=== PATIENT | male | born 1950 | race Caucasian/White ===

== ENCOUNTER 2021-11-26 08:07 | Outpatient (REF) | payer OTHER, SELFPAY ==
[2021-11-26 11:40] LABS: Appearance Urine Clear; Color Urine Yellow; Glucose Urine UA Negative (Negative); Leukocyte Esterase Urine Negative (Negative); Nitrite Urine Negative (Negative); PH 6.5 (5.0-9.0); Specific Gravity - Urine <= 1.005 (1.005-1.025); Urine Blood Negative (Negative); Urine Ketones Negative (Negative); Urine Protein Negative (Neg-Trace)
[2021-11-26 11:42] LABS: Basophils Absolute Auto 0.1 X10*3/uL (0.0-0.2); Basophils Percent Auto 1.3 % (0-2); Eosinophils Absolute Auto 0.1 X10*3/uL (0.0-0.4); Eosinophils Percent Auto 3.5 % (0-4); Hematocrit 48.9 % (42.0-52.0); Hemoglobin 16.4 g/dl (14.0-18.0); Imm Gran Abs Auto 0.01 X10*3/uL (0.00-0.03); Imm Gran Pct Auto 0.3 % (0.0-0.4); Lymphocytes Percent Auto 25.8 % (20-40); MANUAL DIFF FLAG NO; Mean Corpuscular HGB Conc 33.5 g/dl (31.0-36.0); Mean Corpuscular Hemoglobin 28.1 pg (27.0-33.0); Mean Corpuscular Volume 83.9 fL (80.0-98.0); Mean Platelet Volume 11.4 fL (9.4-12.4); Monocytes Absolute Auto 0.5 X10*3/uL (0.1-1.2); Neutrophils Absolute Auto 2.3 x10*3/uL (2.0-8.3); Neutrophils Percent Auto 57.1 % (45-73); Platelet Count 163 X10*3/uL (160-400); Red Blood Count 5.83 X10*6/uL (4.60-5.80); Red Cell Distribution Width 12.9 % (11.0-16.0)
[2021-11-26 12:16] LABS: Alanine Aminotransferase 17 U/L (0-40); Albumin Level 4.4 g/dL (3.5-5.0); Alkaline Phosphatase 52 U/L (39-117); Anion Gap 15 (12-20); Aspartate Amino Transferase 19 U/L (5-37); Bilirubin Total 0.8 mg/dL (0.0-1.0); Blood Urea Nitrogen 13 mg/dL (9-16); Carbon Dioxide 27 mmol/L (22-29); Chloride 103 mmol/L (96-108); Cholesterol 127 mg/dL; Estimated Glomerular Filt Rate > 60; Glucose Fasting 104 mg/dL (60-99); HDL Cholesterol 45 mg/dL; LDL Cholesterol Calculated 65 mg/dl; Potassium 3.5 mmol/L (3.3-5.1); Sodium 141 mmol/L (135-145); Total Protein 6.7 g/dL (6.5-8.0); Triglycerides 89 mg/dL
[2021-11-26 12:41] LABS: Prostate Specific Antigen Scr 3.07 ng/mL (<0.05-4.0); TSH reflex Free T4 1.63 uIU/mL (0.32-4.0)
== END 2021-11-26 08:08 | disposition home or self-care (01) ==
LOC: HO.HMGCLDS 08:07
PROVIDERS: PCP Nurse Practitioner Family; Visit Provider Nurse Practitioner Family
DX: I10 Essential (primary) hypertension (principal); Z12.5 Encounter for screening for malignant neoplasm of prostate
CPT/HCPCS: 36415; 80053; 80061; 81003; 84153; 84443; 85025

== ENCOUNTER → 2021-11-27 07:08 | Outpatient (REF) | payer OTHER, SELFPAY ==
--- NOTE | ~2021-11-27 | CT_ITS ---
EXAMINATION: CT ANGIOGRAM CHEST CLINICAL INFORMATION: Aortic aneurysm COMPARISON: None TECHNIQUE: Multiple axial images were obtained through the chest after the administration of 70 mL of Omnipaque 350 intravenous contrast. Additional 2-D coronal and sagittal reformatted images and axial 3-D maximum intensity projection MIP images are generated on the CT workstation. This CT examination was performed using dose optimization techniques as appropriate, variously including the following: *Automated exposure control *Adjustment of mA and/or kV according to patient size (this includes techniques or standardized protocols for targeted exams where dose is matched to indication/reason for exam; i.e. extremities or head) *Use of iterative reconstruction technique DLP: 466 mGy-cm VASCULAR FINDINGS: There is aneurysmal dilatation of the ascending thoracic aorta. At the level of the main pulmonary artery, transverse dimension is 4.7 x 4.6 cm. When measurements are made to a nuclear to a center line, dimensions and is closer to 4.6 cm. Maximal dimension for a patient of 71 years of age would be 4.2 cm (see below). A tricuspid aortic valve is seen. Extensive coronary calcifications are present. A three-vessel branching pattern of the arch is present with widely patent great vessels. The small visualized portion of the abdominal aorta appears normal with a separate origin to the left gastric artery, patent celiac and SMA. Single renal arteries are included on this study which appear normal proximally. Although not carried out for evaluation of the pulmonary arteries and pulmonary veins, no abnormality is seen. No pulmonary emboli are detected. NONVASCULAR FINDINGS: LUNGS: A 3 mm right upper lobe lung nodule is present (5:89). The lungs are otherwise clear with no evidence of inflammation or worrisome nodules. MEDIASTINUM: The mediastinum is normal. PLEURA: There is no pleural effusion. No pleural mass or thickening. AXILLA: No lymphadenopathy. UPPER ABDOMEN: There is a 1.6 cm nodule in the left adrenal gland which even after IV contrast measures 2 Hounsfield units. This is consistent with a benign adenoma. OSSEOUS STRUCTURES: Mild degenerative changes are present in the spine. Mild compression of the superior endplate of T9. No bony destructive lesion. CT/CT angio chest aorta IMPRESSION: Aneurysmal dilatation of the ascending aorta 4.6 cm. Normal aortic diameters (in millimeters) Ascending aorta: 31+0.16 x age. Descending aorta: 21+0.16 x age. Reference: [employer] Cardiovascular J 2005; 40 (3): 175-178 Incidentally noted left adrenal benign adenoma and a 3 mm right upper lobe pulmonary nodule for which no follow-up is most likely indicated. 2017 Fleischner Society Recommendations for Lung Nodule(s): Follow-Up based on size (average of long- and short-axis diameters). Use most suspicious nodule for followup. Single Solid low risk nodule < 6 mm: No routine follow-up imaging is recommended in low risk and high risk patients. These guidelines do not apply to patients younger than 35 years, immunocompromised patients, and patients with cancer. F/u in patients with significant comorbidities as clinically warranted. For lung cancer screening, adhere to Lung-RADS guidelines. Reference: Radiology. 2017 Sep; 284(1):228-243 Fleischner guidelines were followed.
--- NOTE | 2021-11-27 07:11 | CA_ITS ---
Transthoracic Echocardiogram Patient (Last, First, Middle): Piyush Linn, Gender: Male Date of : 1950 Age: 71 Procedure Date: 11/27/2021 Procedure Type: Transthoracic Echocardiogram Location: OP Height: 165.1 cm Weight: 101.15 kg BSA: 2.07 m2 Heart Rate: 49 bpm BP: 140 / 85 mmHg [employer] Assistant: EUGENE Referring MD: Jigar Carr [facility] Symptoms: I71.9 - Aortic aneurysm of unspecified site, without rupture Study Quality: Adequate ECG Rhythm: Bradycardia Conclusions: - The left ventricular systolic function is low normal. The calculated ejection fraction is 54% by biplane method. - There is a bicuspid aortic valve. There is moderate calcification of the aortic valve. There is moderate aortic valve stenosis. There is mild aortic valve regurgitation. - There is moderate dilatation of the ascending aorta measuring 4.80 cm. Findings Left Ventricle Normal left ventricular cavity size. The left ventricular systolic function is low normal. The calculated ejection fraction is 54% by biplane method. There is no evidence of regional wall motion abnormalities. Diastolic function is normal for age. There is moderate septal asymmetric hypertrophy. Right Ventricle Normal right ventricular cavity size and systolic function. Atria The left atrium is normal in size. The right atrium is normal in size. Aortic Valve There is a bicuspid aortic valve. There is moderate calcification of the aortic valve. There is moderate aortic valve stenosis. The mean gradient is 27 mmHg. The aortic valve area is 1.16 cm2. There is mild aortic valve regurgitation. Dimensionless index 0.21. Stroke volume index 47 mL/m2. Mitral Valve There is mild mitral annular calcification. There is no mitral valve regurgitation. There is no mitral valve stenosis. Pulmonic Valve The pulmonic valve is likely normal. Tricuspid Valve There is trace tricuspid valve regurgitation. There is no evidence of pulmonary hypertension. Great Vessels The aortic annulus and sinuses of valsalva are normal in size. There is moderate dilatation of the ascending aorta measuring 4.80 cm. Venous The inferior vena cava is normal in size and collapses greater than 50% with inspiration. Pericardium/Pleural There is no evidence of pericardial effusion. Prior Study Comparison No prior study available for comparison. Informed PCP by [employer]. Recommend CTA. Measurements 2D Linear Measurements IVSd: 1.48 0.6-0.9/0.6-1.0 cm LVIDd: 4.98 3.9-5.3/4.2-5.9 cm LVIDd Index: 2.41 2.4-3.2/2.2-3.1 cm/m2 LVIDs: 3.44 2.0-3.6 cm LVPWd: 1.00 0.7-1.1 cm LA Diam: 3.90 2.7-3.8/3.0-4.0 cm LAIDs Index: 1.88 1.5-2.3 cm/m2 LV Mass: 303.32 67-162/88-224 g LV Mass Index: 146.53 43-95/49-115 g/m2 LVOT Diam: 2.50 3.0+(-)1.3 cm 2D Systolic Function EF 4C: 53.90 >55% EF 2C: 50.70 >55% EF BiP: 54.00 >55% Mitral Valve MV Pk E: 0.74 MV PK A: 0.79 MV Decel Time: 409.00 E/A: 0.90 E'Lateral: 8.49 E'Medial: 5.33 E/E' Med: 13.90 E/E' Lat: 8.70 PHT: 120.00 MVA PHT: 1.83 [place]: 1.81 Aortic Valve AoV Pk Adrian: 3.38 AoV Mn Adrian: 2.42 AoV VTI: 0.84 AoV Pk Grad: 46.00 Aov Mn Grad: 27.00 ELBA Cont.VTI: 1.16 AI Pk Adrian: 4.27 AI Hill: 1.01 LVOT LVOT Pk Adrian: 0.72 LVOT Mn Adrian: 0.51 LVOT VTI: 0.20 LVOT Pk Grad: 2.00 LVOT Mn Grad: 1.00 LVOT Diam: 2.50 LVOT Area: 4.91 Diastolic Function MV Pk E: 0.74 MV Pk A: 0.79 E/A: 0.90 E'Medial: 5.33 E/E' Med: 13.90 E' Laterial: 8.49 E/E' Lat: 8.70 Right Ventricle TAPSE (mm): 24.80 TVS' Adrian: 10.20 Tricuspid Valve TR Pk Adrian: 1.39 TR Pk Grad: 8.00 RA Press: 3.00 RVSP: 11.00 Great Vessels Aorta Sinus of Valsalva: 3.70 2.0-3.5 cm Ao Asc: 4.80 2.1-3.4 cm Pulmonary Valve PV Pk Adrian: 0.86 Peak PV Grad: 3.00 Updated in Other Vendor System with Status of Final Luis Johnson MD electronically signed on 11/27/2021 11:23:29 AM with status of Final
[2021-11-27] MEDS: iohexoL 350 MG/ML 100 ML INFUS..BTL IV (16:42)
== END ==
LOC: HO.CARD 07:08
PROVIDERS: PCP Nurse Practitioner Family; Visit Provider Nurse Practitioner Family
DX: R01.1 Cardiac murmur, unspecified (principal); I71.9 Aortic aneurysm of unspecified site, without rupture
CPT/HCPCS: 71275; 93306; Q9967

== ENCOUNTER 2021-12-03 10:32 | Outpatient (REF) | payer OTHER, SELFPAY ==
[2021-12-03 12:30] LABS: INTERNATIONAL NORM RATIO 0.9 (0.9-1.1); Prothrombin Time 10.5 SEC (10.0-13.1)
== END 2021-12-03 10:33 | disposition home or self-care (01) ==
LOC: HO.LAB 10:32
PROVIDERS: PCP Nurse Practitioner Family; Visit Provider Internal Medicine
DX: I25.10 Atherosclerotic heart disease of native coronary artery without angina pectoris (principal); I35.1 Nonrheumatic aortic (valve) insufficiency; I71.2 Thoracic aortic aneurysm, without rupture; I35.0 Nonrheumatic aortic (valve) stenosis; I10 Essential (primary) hypertension
CPT/HCPCS: 36415; 85610; 93005